=== PATIENT | female | born 1955 | race Caucasian/White ===

== ENCOUNTER 2022-11-13 08:24 | Emergency (ER) | payer MEDICARE, SELFPAY ==
[2022-11-13] VITALS (20 sets, daily range): BP systolic 121–175; BP diastolic 61–93; PULSE 55–77; RESP 16–46; TEMP 36.6; O2SAT 85–100; BMI 28.9
[2022-11-13] MEDS: SODIUM CHLORIDE 0.9% 1,000 ML 1000 ML IV (08:50)
[2022-11-13] MEDS: KETOROLAC 30 MG/ML VIAL 15 MG IV (08:50)
[2022-11-13] MEDS: ONDANSETRON 4 MG/2 ML INJ IV (08:51)
[2022-11-13 08:52] LABS: Add Manual Diff / Slide Review NO; Basophils Absolute Auto 0 /uL (0-100); Basophils Percent Auto 0.3 % (0-2); Eosinophils Absolute Auto 0 /uL (0-450); Hematocrit 45.6 % (36-46); Hemoglobin 15.9 g/dL (12.0-16.0); Lymphocytes Absolute Auto 1200 /uL (1100-4500); Lymphocytes Percent Auto 16.5 % (25-40); Mean Corpuscular HGB Conc 34.9 % (30-36); Mean Corpuscular Hemoglobin 32.4 PG (26-34); Mean Corpuscular Volume 92.7 fL (80-100); Monocytes Absolute Auto 300 /uL (0-900); Monocytes Percent Auto 4.4 % (3-14); Neutrophils Absolute Auto 5600 /uL (1500-7000); Neutrophils Percent Auto 78.8 % (50-75); Platelet Count 292 X10^3/uL (150-400); Red Blood Cell Count 4.92 X10^6/uL (4.0-5.2); Red Cell Distribution Width 13.4 % (11.6-14.8); White Blood Cell Count 7.1 X10^3/uL (4.5-11.0)
[2022-11-13 09:04] LABS: Alanine Aminotransferase 38 IU/L (<35); Albumin 4.7 g/dL (3.5-5.0); Albumin Globulin Ratio 1.4 (1.0-2.8); Alkaline Phosphatase 87 U/L (38-126); Aspartate Aminotransferase 43 IU/L (14-36); BUN Creatinine Ratio 14.5 (6-22); Bilirubin Total 0.9 mg/dL (0.2-1.3); Blood Urea Nitrogen 12 mg/dL (7-17); Calcium 10.1 mg/dL (8.4-10.2); Carbon Dioxide 21 mmol/L (22-32); Chloride 104 mmol/L (98-107); Estimated Glomerular Filt Rate > 60 mL/min (>60); Globulin 3.3 g/dL (1.7-4.1); Glucose 132 mg/dL (80-110); HEMOLYSIS < 15 (0-50); Lipase 80 U/L (23-300); Potassium 3.5 mmol/L (3.4-5.1); Sodium 138 mmol/L (137-145)
[2022-11-13 10:19] LABS: Bacteria Urine Occasional (0-1); Culture Indicated Urine Specimen Cultured; Mucus Urine 2+ (Negative); RBC Urine 1-5/HPF (0-5/HPF); Squamous Epithelial Cell Urine 1-5 /HPF (0-5/HPF); WBC Urine 1-5/HPF (0-5/HPF)
--- NOTE | 2022-11-13 11:57 | ED_ITS ---
HPI - Abdominal Pain General Chief Complaint: Abdominal Pain Stated Complaint: sent by [facility] poss peritonitis T-2 Time Seen by Provider: 11/13/22 08:43 Source: patient Mode of arrival: Ambulatory Limitations: no limitations History of Present Illness HPI narrative: This is a 66-year-old female with history of intermittent urticaria presumed to be exercise-induced but has never seen an railway station manager, hypothyroidism on l evothyroxine and GERD. Patient states she has had intermittent hives over the years, Saturday night she had another episode she had abdominal pain nausea and vomiting in her diaphragm felt tight. At 1 point she felt like her airway was doing so she used an EpiPen for the 1st time ever that she had. Patient states it did not seem to help her symptoms did go away, she was seen at [place] [facility] was treated with Benadryl. Patient states she is had the hives on and off for the past several days but none currently. She states it usually seems to be exercise induced but not always. First episode was in 2006, her 1st ER visit for them was in 2008. She typically takes oral Benadryl, she takes Diana every single day for these. Patient states this morning she started having epigastric pain nausea vomiting and diarrhea, she states that was sort of greenish in coloration the emesis as well as her stool. She states no black or bloody stools. Pain radiating throughout her abdomen and into her back bilaterally. She denies fevers or chills. No syncope. No dysuria urgency or frequency. Patient states home medications early levothyroxine, Pepcid, Diana daily and PRN Benadryl. She states prior surgeries include wisdom teeth and carpal tunnel. No tobacco, has 2 alcoholic drinks most days but has abstained in the last 3 days. Occasional THC but not daily, no illicit. They live in [place] and are currently traveling to [place] for the next month. Related Data Previous Rx's Medication Instructions Recorded meloxicam 7.5 mg tablet 7.5 mg PO BID PRN pain #10 tabs 11/13/22 prednisone 20 mg tablet 40 mg PO DAILY #10 tabs 11/13/22 Allergies Allergy/AdvReac Type Severity Reaction Status Date / Time Penicillins Allergy Verified 11/13/22 08:42 Review of Systems Review of Systems ROS Unobtainable: All systems reviewed & are unremarkable except as noted in HPI and below Patient History Social History Smoking Status: Never smoker Smoking Status: Never smoker alcohol intake frequency: holidays/special occasions only Substance Use Type: does not use Exam Narrative Exam Narrative: GENERAL: Alert and oriented x three, well-appearing female in mild distress. HEENT: Head normocephalic, atraumatic, EOMI, pupils reactive, face symmetric, moist mucous membranes, no swelling of lips tongue or oropharynx. Normal speech. No stridor or hoarseness. NECK: Supple, full range of motion CARDIOVASCULAR: Regular rate and rhythm without murmurs, rubs or gallops. RESPIRATORY: Breath sounds equal bilaterally, no wheezes rales or rhonchi. ABDOMEN: Soft, nontender. Nondistended. Normoactive bowel sounds all 4 quadrants. No guarding or rebound, rigidity, no mass : No CVA tenderness EXTREMITIES: Normal range of motion, no clubbing or edema. Neurovascularly intact NEUROLOGICAL: Cranial nerves II through XII grossly intact. Moving all extremities SKIN: Warm, dry, no petechiae, no rashes or lesions, no redness or other hives. Initial Vital Signs Initial Vital Signs: Vital Signs Temperature 98 F 11/13/22 08:38 Pulse Rate 76 11/13/22 08:38 Respiratory Rate 16 11/13/22 08:38 Blood Pressure 171/93 H 11/13/22 08:38 Pulse Oximetry 99 11/13/22 08:38 Oxygen Delivery Method Room Air 11/13/22 08:38 Course Orders Ordered: ED Orders 11/13/22 10:01 Urine Culture Stat Urine Microscopic Stat 11/13/22 12:22 CT abdomen pelvis w con Stat Discontinued Medications Sodium Chloride (Normal Saline 0.9%) 1,000 mls @ 1,000 mls/hr IV BOLUS ONE Stop: 11/13/22 09:43 Last Infusion: 11/13/22 10:51 Dose: 0 mls/hr Documented By: Admin: 11/13/22 08:50 Dose: 1,000 mls/hr Documented By: JAYSON Ketorolac Tromethamine (Ketorolac 30 Mg/Ml Vial) 15 mg IV NOW ONE Stop: 11/13/22 08:45 Last Admin: 09/05/23 08:50 Dose: 15 mg Documented By: JAYSON Ondansetron HCl (Ondansetron 4 Mg Odt) 4 mg PO NOW PRN PRN Reason: Nausea And Vomiting Ondansetron HCl (Ondansetron 4 Mg/2 Ml Inj) 4 mg IV NOW PRN PRN Reason: Nausea And Vomiting Last Admin: 11/13/22 08:51 Dose: 4 mg Documented By: JAYSON Vital Signs Vital signs: Vital Signs - 8 hr 11/13/22 11:00 11/13/22 11:30 11/13/22 12:00 Pulse Rate 60 57 L 61 Respiratory Rate 21 22 22 Blood Pressure Pulse Oximetry 97 98 98 11/13/22 12:30 11/13/22 13:00 11/13/22 13:30 Pulse Rate 65 65 65 Respiratory Rate 21 21 16 Blood Pressure Pulse Oximetry 93 99 96 11/13/22 14:00 11/13/22 14:30 11/13/22 15:00 Pulse Rate 61 62 67 Respiratory Rate 20 21 26 H Blood Pressure Pulse Oximetry 96 96 98 11/13/22 15:09 11/13/22 15:09 Pulse Rate 71 Respiratory Rate 29 H Blood Pressure 121/75 Pulse Oximetry 99 MDM - Abdominal Pain Lab Data 11/13/22 08:44 11/13/22 08:44 Labs: Lab Results 11/13/22 11/13/22 11/13/22 Range/Units 08:44 08:44 10:01 WBC 7.1 (4.5-11.0) X10^3/uL RBC 4.92 (4.0-5.2) X10^6/uL Hgb 15.9 (12.0-16.0) g/dL Hct 45.6 (36-46) % MCV 92.7 (80-100) fL MCH 32.4 (26-34) PG MCHC 34.9 (30-36) % RDW 13.4 (11.6-14.8) % Plt Count 292 (150-400) X10^3/uL Neut % (Auto) 78.8 H (50-75) % Lymph % (Auto) 16.5 L (25-40) % [place] % (Auto) 4.4 (3-14) % Eos % (Auto) 0.0 L (2-4) % Baso % (Auto) 0.3 (0-2) % Neut # (Auto) 5600 (5375-0381) /uL Lymph # (Auto) 1200 (3777-1280) /uL [place] # (Auto) 300 (0-900) /uL Eos # (Auto) 0 (0-450) /uL Baso # (Auto) 0 (0-100) /uL Sodium 138 (137-145) mmol/L Potassium 3.5 (3.4-5.1) mmol/L Chloride 104 (98-107) mmol/L Carbon Dioxide 21 L (22-32) mmol/L BUN 12 (7-17) mg/dL Creatinine 0.83 (0.52-1.04) mg/dL Estimated GFR > 60 (>60) mL/min BUN/Creatinine Ratio 14.5 (6-22) Glucose 132 H (80-110) mg/dL Calcium 10.1 (8.4-10.2) mg/dL Total Bilirubin 0.9 (0.2-1.3) mg/dL AST 43 H (14-36) IU/L ALT 38 H (<35) IU/L Alkaline Phosphatase 87 (38-126) U/L Total Protein 8.0 (6.3-8.2) g/dL Albumin 4.7 (3.5-5.0) g/dL Globulin 3.3 (1.7-4.1) g/dL Albumin/Globulin Ratio 1.4 (1.0-2.8) Lipase 80 (23-300) U/L Urine RBC 1-5/hpf (0-5/HPF) Urine WBC 1-5/hpf (0-5/HPF) Ur Squamous Epith Cells 1-5 /hpf (0-5/HPF) Urine Bacteria Occasional (0-1) (None) Urine Mucus 2+ H (Negative) Ur Culture Indicated? Specimen cultured Point of care testing: Urine Dip Bedside Urine Glucose Negative Bedside Urine Bilirubin - Negative Bedside Urine Ketone +++ 80 Urine Specific [place] 1.030 Bedside Urine Occult Blood + Bedside Urine pH 5.5 Bedside Urine Protein + 30 Bedside Urine Urobilinogen - Negative Bedside Urine Nitrite - Negative Bedside Urine Leukocytes +/- [address] scan - abdomen/pelvis: Radiologist's Impression: Close Abdomen/Pelvis CT (Signed) Rossy Chang - 11/13/22 [address] [place] [address] CT Scan Report Signed Patient: Oneida Barragan MR#: [id number] : 1955 Acct:[id number] Age/Sex: 66 / F Date of Service: 11/13/22 Loc: ED Accession Number: [id number] ?? Procedure: CT abdomen pelvis w con Ordering Provider: Lluvia Monk D.O. PROCEDURE:? CT ABDOMEN PELVIS W CON ? INDICATIONS:? n/v/d w/ abd pain tod, has had intermittent urticaria recent ? TECHNIQUE:? After the administration of oral and IV contrast, axial sections were acquired from the lung bases to the pubic symphysis.? Coronal and sagittal reformats were performed.? For radiation dose reduction, the following was used:? automated exposure control, adjustment of mA and/or kV according to patient size. ? COMPARISON:? None. ? FINDINGS:? Image quality:? Excellent.? ? Lung bases:? Unremarkable.? ? Heart:? No significant findings. ? ? ABDOMEN: Liver:? Unremarkable.? ? Gallbladder:? There is gallbladder sludge.? No gallbladder wall thickening or pericholecystic fluid. Biliary ducts:? Unremarkable.? ? Pancreas:? Unremarkable.? ? Spleen:? Unremarkable.? ? Adrenal Glands:? Unremarkable.? ? Kidneys and Ureters:? Unremarkable.? ? ? Stomach and Bowel:? Stomach, small bowel loops, and colon are normal in caliber.? There is diffuse colonic wall thickening.? There are scattered colonic diverticula.? No CT findings to suggest acute diverticulitis.? Appendix is normal. Peritoneum:? Trace amount of intraperitoneal fluid.? No free air.? ? Ventral Wall: ? No hernia.? Abdominal Nodes:? No retroperitoneal or mesenteric adenopathy by size criteria.? Vessels:? Aorta and inferior vena cava are normal in size.? ? PELVIS: Pelvic Organs:? Unremarkable.? ? Bladder:? Unremarkable.? ? Pelvic Nodes: No enlarged lymph nodes.? Miscellaneous: No inguinal hernias are seen. ? ? ? Bones:? Grade 1 anterolisthesis of L4 on L5.? Degenerative changes noted in lumbar spine. ? ? IMPRESSION:? ? 1. Diffuse colonic wall thickening consistent with colitis.? Differential diagnoses are infectious colitis versus inflammatory bowel disease such as ulcerative colitis. 2. Diverticulosis without diverticulitis. 3. A small amount of free fluid in peritoneal cavity.? No abscess. 4. Gallbladder sludge.? Dictated by: Rossy Chang M.D. on 11/13/2022 at 14:24 ? ? Approved by: Rossy Chang M.D. on 11/13/2022 at 14:35?? ECG Data Attestation: I personally reviewed and interpreted this ECG as follows: Prior ECG tracings: not available for review Interpretation: Sinus rhythm rate of 69 TX 156 QRS of [address]TC [address] No acute [address] elevation or depression noted. No priors. MDM Narrative Medical decision making narrative: 66-year-old female who presents with complaint of abdominal pain, nausea vomiting and diarrhea. Patient is much improved after some pain medication here. She notes chronic urticaria that is intermittent they believe is exercise-induced but she is never seen an railway station manager. She does take Diaan every day she states she did not do any exercise her most recent episode and she is EpiPen for the 1st time she thought her airway was involved. She was [facility]. She states hives have come and gone since then today they are currently gone. She has not had any more airway involvement issues but has had nausea and vomiting intermittently. She states pain was throughout that is atypical for her. She states she has sometimes had some diaphragm irritation. Her labs are overall reassuring LFTs are very slightly elevated, urine shows some ketones but no clear signs of infection. After discussion with patient she is nontender exam but has had Toradol. As she is traveling and has difficulty with follow-up with CT abdomen pelvis to rule out other causes. CT does show changes consistent with colitis, patient does have some gallbladder sludge, anterolisthesis. She was aware of the bony changes. Review all of these. Discussed with patient will treat with oral steroids at this time my suspicion for infectious colitis is much lower. Patient feels comfortable with this plan. She has refilled her EpiPen already. Discussed with patient I would recommend she follow up with an railway station manager if she is having increasing symptoms or now feel she needs used epipen intermittently. Reviewed return precautions with patient she feels comfortable this plan to return if her pain she is not had any persistent nausea vomiting or diarrhea here in the department. Vitals have been stable. Discharge Plan Departure Patient Disposition: Home Clinical Impression: Nausea vomiting and diarrhea, Colitis, Sludge in gallbladder Instructions: DI for Colitis Activity Restrictions/Additional Instructions: Follow up with your physician, I would discuss following up with an railway station manager since your symptoms have required that you use an EpiPen. Your imaging today does show thickening of the bowel consistent with colitis, with your reoccurring episodes of hives I would try steroids to see if this improves your symptoms. Incidental until he there was some sludge found in her gallbladder and a grade 1 anterolisthesis L4 on 5 in the lower back. I would continue your Diana daily. Take steroids once daily until gone. Start your first dose today. Take meloxicam 1 tablet every 12 hours as needed for pain, I would recommend you take this medication with food. You can take Tylenol up to a 1000 mg every 6 hours with this medication as well. Prescription sent to [facility] in [place]. Please return or go to the closest ER for fevers, worsening or new abdominal back or flank pain, persistent vomiting, black or bloody stools, lightheadedness or passing out, new rash, airway involvement, swelling of the lips tongue or mouth or other new or concerning changes Prescriptions: New prednisone 20 mg tablet 40 mg PO DAILY Qty: 10 0RF meloxicam 7.5 mg tablet 7.5 mg PO BID PRN (Reason: pain) Qty: 10 0RF Referrals: Miscellaneous,Doctor, MD [Primary Care Provider] - Stand Alone Forms: Patient Portal/API
--- NOTE | 2022-11-13 12:22 | DI.CT.S_ITS ---
PROCEDURE: CT ABDOMEN PELVIS W CON INDICATIONS: n/v/d w/ abd pain tod, has had intermittent urticaria recent TECHNIQUE: After the administration of oral and IV contrast, axial sections were acquired from the lung bases to the pubic symphysis. Coronal and sagittal reformats were performed. For radiation dose reduction, the following was used: automated exposure control, adjustment of mA and/or kV according to patient size. COMPARISON: None. FINDINGS: Image quality: Excellent. Lung bases: Unremarkable. Heart: No significant findings. ABDOMEN: Liver: Unremarkable. Gallbladder: There is gallbladder sludge. No gallbladder wall thickening or pericholecystic fluid. Biliary ducts: Unremarkable. Pancreas: Unremarkable. Spleen: Unremarkable. Adrenal Glands: Unremarkable. Kidneys and Ureters: Unremarkable. Stomach and Bowel: Stomach, small bowel loops, and colon are normal in caliber. There is diffuse colonic wall thickening. There are scattered colonic diverticula. No CT findings to suggest acute diverticulitis. Appendix is normal. Peritoneum: Trace amount of intraperitoneal fluid. No free air. Ventral Wall: No hernia. Abdominal Nodes: No retroperitoneal or mesenteric adenopathy by size criteria. Vessels: Aorta and inferior vena cava are normal in size. PELVIS: Pelvic Organs: Unremarkable. Bladder: Unremarkable. Pelvic Nodes: No enlarged lymph nodes. Miscellaneous: No inguinal hernias are seen. Bones: Grade 1 anterolisthesis of L4 on L5. Degenerative changes noted in lumbar spine. IMPRESSION: 1. Diffuse colonic wall thickening consistent with colitis. Differential diagnoses are infectious colitis versus inflammatory bowel disease such as ulcerative colitis. 2. Diverticulosis without diverticulitis. 3. A small amount of free fluid in peritoneal cavity. No abscess. 4. Gallbladder sludge. Dictated by: Rossy Chang M.D. on 11/13/2022 at 14:24 Approved by: Rossy Chang M.D. on 11/13/2022 at 14:35
== END 2022-11-13 15:15 | disposition home or self-care (01) ==
PROVIDERS: Emergency Provider Emergency Medicine
DX: K82.8 Other specified diseases of gallbladder (principal); R11.2 Nausea with vomiting, unspecified; K52.9 Noninfective gastroenteritis and colitis, unspecified; R10.9 Unspecified abdominal pain
CPT/HCPCS: 36415; 74177; 80053; 81003; 81015; 83690; 85025; 87086; 93005; 93010; 96361; 96374; 96375; 99284; J1885; J2405; Q9967